=== PATIENT | male | born 2000 ===

== ENCOUNTER 2024-04-03 22:13 | Emergency (ER) | payer OTHER ==
[2024-04-03] MEDS ORDERED: NA CHLORIDE 0.9% 1,000 ML ONE (23:00)
[2024-04-03 23:40] LABS: Calcium Oxalate Crystals- Ur Few /HPF (None Seen); Specific Gravity > 1.030 (1.005-1.030); Sqamous Epithelial None Seen /HPF (None Seen); Urine Bacteria None Seen /HPF (<20); Urine Bilirubin NEGATIVE (Negative); Urine Blood Negative (Negative); Urine Clarity Clear (Clear); Urine Color Light-Yellow (Yellow); Urine Culture Reflex Order NOT NEEDED; Urine Glucose NEGATIVE (Negative); Urine Ketones NEGATIVE (Negative); Urine Microscopic Reflex YN ORDER UMIC; Urine Mucus Slight /HPF (None Seen); Urine Nitrite NEGATIVE (Negative); Urine Protein TRACE (Negative); Urine RBC <5 /HPF (None Seen); Urine Urobilinogen Normal (Normal); Urine WBC <5 /HPF (<5); Urine pH 5.5 (5.0-7.0)
[2024-04-03 23:44] LABS: Absolute Eosinophils 0.1 K/uL (0-0.5); Absolute Lymphocytes (CBC) 3.6 K/uL (0.7-4.9); Absolute Monocytes 0.7 K/uL (0.1-1.3); Absolute Neutrophil 5.9 K/uL (1.8-8.0); Basophils % 0.5 % (0-1.3); Eosinophils % 0.9 % (0-4.4); Hematocrit 40.3 % (39.6-49.0); Hemoglobin 13.8 g/dL (13.6-17.9); Lymphocytes % 35.1 % (15.3-44.8); MCH 28.7 pg (27.0-35.0); MCHC 34.4 g/dL (32.0-36.0); MCV 83.6 fL (80-100); MPV 9.2 fL (7.6-11.3); Monocytes % 6.5 % (3.3-12.3); Nucleated Red Blood Cells % 0.2 % (0-0); Platelets 286 thou/uL (152-406); RBC Red Blood Cell Count 4.82 M/uL (4.33-5.43); Red Cell Distribution Width 12.9 % (12.1-15.2)
[2024-04-03 23:57] LABS: Albumin 3.9 g/dL (3.4-5.0); Anion Gap 8.7 mEq/L (5.0-15.0); Bilirubin Total 0.3 mg/dL (0.2-1.0); Potassium 3.7 mEq/L (3.5-5.1); Protein, Total 7.9 g/dL (6.4-8.2); Troponin High Sensitivity 5.3 pg/mL (<58.9)
--- NOTE | 2024-04-04 00:05 | EDPHYS ---
Physician Documentation [facility] Name: Kp Silverman Age: 23 yrs Sex: Male : 2000 Arrival Date: 04/03/2024 Time: 22:13 Bed 6 Private MD: ED Physician Mario López HPI: 04/04 00:47 This 23 yrs old Male presents to ER via Ambulatory with complaints of Dizziness, kb Headache. 00:47 Patient is a 23-year-old male who presents for dizziness and headache that started at 8 kb PM while in class. States he worked all day, had an interview and an exam at school this evening so it is been a overly stressful day. States he also worked outside all day which is abnormal. Denies chest pain, shortness of breath, fever, cough, congestion. States symptoms have improved but not resolved. Historical: - Allergies: 04/03 22:26 No Known Allergies; kl - Home Meds: 22:26 None [Active]; kl - PMHx: 22:26 Headache; kl - PSHx: 22:26 None; kl - Immunization history:: Adult Immunizations not immunized. - Infectious Disease History:: Denies. - Social history:: Smoking status: Reported history of juuling and/or vaping. ROS: 04/04 00:29 Constitutional: As per HPI kb Exam: 04/03 23:46 Constitutional: This is a well developed, well nourished patient who is awake, alert, kb and in no acute distress. Head/Face: Normocephalic, atraumatic. Eyes: Pupils equal round and reactive to light, extra-ocular motions intact. Lids and lashes normal. Conjunctiva and sclera are non-icteric and not injected. Cornea within normal limits. Periorbital areas with no swelling, redness, or edema. ENT: Moist Mucous membranes Cardiovascular: Regular rate Respiratory: Respirations even and unlabored. No increased work of breathing. Talking in full sentences Abdomen/GI: Soft, non-tender. No distention Skin: Warm, dry with normal turgor. Normal color. MS/ Extremity: Pulses equal, no cyanosis. Neurovascular intact. Full, normal range of motion. Neuro: Awake and alert, GCS 15, oriented to person, place, time, and situation. ECG was reviewed by the Attending Physician. Vital Signs: 22:23 BP 146 / 86; Pulse 81; Resp 20; Temp 96.9(T); Pulse Ox 98% on R/A; Weight 136.08 kg kl (R); Height 5 ft. 11 in. ; Pain 6/10; 23:26 BP 130 / 76; Pulse 72; Resp 16; Temp 98.2(O); Pulse Ox 97% on R/A; Pain 0/10; mt4 04/04 00:45 BP 134 / 81; Pulse 66; Resp 17; Temp 98.2; Pulse Ox 97% ; Pain 0/10; bm8 04/03 22:23 Body Mass Index 41.84 (136.08 kg, 180.34 cm) kl 04/03 22:23 Pain Scale: Adult kl 23:26 Pain Scale: Adult mt4 04/04 00:45 Pain Scale: Adult bm8 [place] Coma Score: 04/03 23:26 Eye Response: spontaneous(4). Motor Response: obeys commands(6). Verbal Response: mt4 oriented(5). Total: 15. 04/04 00:45 Eye Response: spontaneous(4). Motor Response: obeys commands(6). Verbal Response: bm8 oriented(5). Total: 15. MDM: 04/03 22:21 Medical Screening Exam initiated kb 04/04 00:29 Differential diagnosis: cardiac arrhythmia, generalized weakness, idiopathic dizziness, kb near-syncope. Data reviewed: vital signs, nurses notes. Historians other than the Patient: Spouse/Significant Other: significant other. Counseling: I had a detailed discussion with the patient and/or guardian regarding the historical points, exam findings, and any diagnostic results supporting the discharge/admit diagnosis, lab results, the need for outpatient follow up, a family practitioner, to return to the emergency department if symptoms worsen or persist or if there are any questions or concerns that arise at home. 00:48 ED course: Patient feeling better after treatment, ambulatory with steady gait.. kb 04/03 22:25 Order name: CBC with Diff; Complete Time: 23:48 kb 04/03 22:25 Order name: CMP; Complete Time: 23:57 kb 04/03 22:25 Order name: Troponin High Sensitivity; Complete Time: 23:57 kb 04/03 22:25 Order name: CPK; Complete Time: 23:57 kb 04/03 22:25 Order name: Urinalysis w/ reflexes; Complete Time: 23:42 kb 04/03 22:25 Order name: EKG; Complete Time: 22:26 kb 04/03 22:25 Order name: IV Start; Complete Time: 23:26 kb 04/03 22:25 Order name: EKG - Nurse/Tech; Complete Time: 23:58 kb EC/30 23:46 Rate is 76 beats/min. Rhythm is regular. QRS [place] is Normal. NM interval is normal at kb 76 msec. QRS interval is normal at 162 msec. QT interval is normal at 110 msec. Administered Medications: : Drug: NS 0.9% IV 1000 ml IV at 1000 ml once; to be given as a bolus over 60 minutes mt4 Route: IV; Rate: 1000 ml; Site: left antecubital; 04/04 00:46 Follow up: Response: No adverse reaction; IV Status: Completed infusion; IV Intake: bm8 1000ml Disposition Summary: 04/04/24 00:05 Discharge Ordered Notes: Location: Home kb Condition: Stable kb Diagnosis - Dizziness and giddiness kb Followup: kb - With: Emergency Department - When: As needed - Reason: Worsening of condition Followup: kb - With: Private Physician - When: 2 - 3 days - Reason: Recheck today's complaints, Continuance of care, Re-evaluation by your physician Discharge Instructions: - Discharge Summary Sheet kb - Dizziness, [id number] kb Forms: - Medication Reconciliation Form kb - Antibiotic Education kb - Prescription Opioid Use kb - Patient Portal Instructions kb - Leadership Thank You Letter kb Signatures: Dispatcher [employer] Alyssa Stewart FNP-C FNP-Ellie Nina, RN RN Herlinda Miller, RN RN mt4 Lit Russ RN bm8
--- NOTE | 2024-04-04 00:05 | ER ---
Nurse's Notes [facility] Name: Kp Silverman Age: 23 yrs Sex: Male : 2000 Arrival Date: 04/03/2024 Time: 22:13 Bed 6 Private MD: Diagnosis: Dizziness and giddiness Presentation: 04/03 22:23 Chief complaint: Patient states: dizziness and headache since 8 pm reports long kl stressful day was sitting in class when symptoms began. Coronavirus screen: Vaccine status: Patient reports being unvaccinated. Ebola Screen: Patient negative for fever greater than or equal to 101.5 degrees Fahrenheit, and additional compatible Ebola Virus Disease symptoms. Initial Sepsis Screen: Does the patient meet any 2 criteria? No. Patient's initial sepsis screen is negative. Does the patient have a suspected source of infection? No. Patient's initial sepsis screen is negative. Risk Assessment: Do you want to hurt yourself or someone else? Patient reports no desire to harm self or others. Onset of symptoms was April 03, 2024 at 20:00. 22:23 Method Of Arrival: Ambulatory 22:23 Acuity: ANG 4 kl 22:28 Acuity: ANG 3 kl Triage Assessment: 22:26 Headache History: The patient has had previous headaches and this one is more severe kl than previous episodes. General: Appears in no apparent distress. comfortable, Behavior is calm, cooperative, appropriate for age. Pain: Pain currently is 6 out of 10 on a pain scale. Pain began 3 hours ago. Also complains of dizziness. Neuro: No deficits noted. Level of Consciousness is awake, alert, obeys commands, Oriented to person, place, time, situation, Gait is steady, Speech is normal, Facial symmetry appears normal, Pupils are PERRLA. Historical: - Allergies: 22:26 No Known Allergies; kl - Home Meds: 22:26 None [Active]; kl - PMHx: 22:26 Headache; kl - PSHx: 22:26 None; kl - Immunization history:: Adult Immunizations not immunized. - Infectious Disease History:: Denies. - Social history:: Smoking status: Reported history of juuling and/or vaping. Screenin:26 [facility] ED Fall Risk Assessment (Adult) History of falling in the last 3 months, mt4 including since admission Confusion or Disorientation No (0 pts) Intoxicated or Sedated No (0 pts) Impaired Gait No (0 pts) Mobility Assist Device Used No (0 pt) Altered Elimination No (0 pt) Score/Fall Risk Level 0 - 2 = Low Risk. Abuse screen: Denies injuries from another. Nutritional screening: No deficits noted. Tuberculosis screening: No symptoms or risk factors identified. Exposure risk/Travel Screening: None identified. Assessment: 23:26 General: Appears in no apparent distress. comfortable, Behavior is calm, cooperative, mt4 appropriate for age. General: Reports fatigue for. Pain: Denies pain. Neuro: Level of Consciousness is awake, alert, obeys commands, Oriented to person, place, time, situation, Appropriate for age Unemployment Insurance Hearing Officer are equal bilaterally Moves all extremities. Gait is steady, Speech is normal, Facial symmetry appears normal. Cardiovascular: Capillary refill < 3 seconds. Respiratory: Airway is patent Respiratory effort is even, unlabored, Respiratory pattern is regular, symmetrical. GI: No signs and/or symptoms were reported involving the gastrointestinal system. : No signs and/or symptoms were reported regarding the genitourinary system. Derm: No signs and/or symptoms reported regarding the dermatologic system. Musculoskeletal: Capillary refill < 3 seconds, Range of motion: intact in all extremities. 04/04 00:45 Reassessment: Patient appears in no apparent distress at this time. Patient and/or bm8 family updated on plan of care and expected duration. Pain level reassessed. Patient is alert, oriented x 3, equal unlabored respirations, skin warm/dry/pink. Patient denies pain at this time. Patient states feeling better. Patient states symptoms have improved. Vital Signs: 04/03 22:23 BP 146 / 86; Pulse 81; Resp 20; Temp 96.9(T); Pulse Ox 98% on R/A; Weight 136.08 kg kl (R); Height 5 ft. 11 in. ; Pain 6/10; 23:26 BP 130 / 76; Pulse 72; Resp 16; Temp 98.2(O); Pulse Ox 97% on R/A; Pain 0/10; mt4 04/04 00:45 BP 134 / 81; Pulse 66; Resp 17; Temp 98.2; Pulse Ox 97% ; Pain 0/10; bm8 04/03 22:23 Body Mass Index 41.84 (136.08 kg, 180.34 cm) 04/03 22:23 Pain Scale: Adult kl 23:26 Pain Scale: Adult mt4 04/04 00:45 Pain Scale: Adult bm8 [place] Coma Score: 04/03 23:26 Eye Response: spontaneous(4). Motor Response: obeys commands(6). Verbal Response: mt4 oriented(5). Total: 15. 04/04 00:45 Eye Response: spontaneous(4). Motor Response: obeys commands(6). Verbal Response: bm8 oriented(5). Total: 15. ED Course: 04/03 22:18 Patient arrived in ED. gm2 22:21 Alyssa Weldon [facility]-C [facility]. kb 22:21 Mario López MD is Attending Physician. kb 22:26 Triage completed. kl 22:57 Herlinda Miller, RN is Primary Nurse. mt4 23:26 No apparent distress. Resting quietly. Awaiting lab results. mt4 23:26 Patient has correct armband on for positive identification. Bed in low position. Call mt4 light in reach. Side rails up X 1. Provided Education on: safety education, labs, meds . Client placed on continuous cardiac and pulse oximetry monitoring. NIBP monitoring applied. Pulse ox on. Door closed. Lights dimmed. Assisted to bathroom. 23:26 No provider procedures requiring assistance completed. Inserted saline lock: 20 gauge mt4 in left antecubital area, using aseptic technique. Blood collected. Flushed with 10 mL NS. Patient maintains SpO2 saturation greater than 95% on room air. 04/04 00:45 IV discontinued, intact, bleeding controlled, No redness/swelling at site. Pressure bm8 dressing applied. 00:47 Arm band placed on right wrist. bm8 Administered Medications: 04/03 23:26 Drug: NS 0.9% IV 1000 ml IV at 1000 ml once; to be given as a bolus over 60 minutes mt4 Route: IV; Rate: 1000 ml; Site: left antecubital; 04/04 00:46 Follow up: Response: No adverse reaction; IV Status: Completed infusion; IV Intake: bm8 1000ml Medication: 04/03 23:26 VIS not applicable for this client. mt4 Intake: 04/04 00:46 IV: 1000ml; Total: 1000ml. bm8 Outcome: 00:05 Discharge ordered by . ambika 00:45 Discharged to home ambulatory, bm8 00:45 Condition: stable 00:45 Discharge instructions given to patient, family, Instructed on discharge instructions, follow up and referral plans. Demonstrated understanding of instructions, follow-up care, Prescriptions given X 00:47 Patient left the ED. bm8 Signatures: Alyssa Weldon, ELECTRONIC INTELLIGENCE OFFICER-C PRISCILLA-Ellie Nina, RN RN Essie Jaffe 2 Lit Russ RN RN bm8 Herlinda Miller RN RN mt4
[2024-04-04 01:01] VITALS: TEMP 98.2; O2SAT 97
[2024-04-04 01:02] VITALS: BP 134/81
--- NOTE | 2024-04-04 11:06 | EKG ---
Test Date: 2024-04-03 Test Time: 23:36:47 Adobe Maker: BRIAN MEASUREMENT RESULTS: Intervals: Rate: 76 [place]: 162 QRSD: 110 QT: 390 QTc: 438 [place]: P: 33 [place]: 162 QRS: 8 T: 16 INTERPRETIVE STATEMENTS: Normal sinus rhythm with sinus arrhythmia Incomplete right bundle branch block Borderline ECG No previous ECG available for comparison Electronically Signed On 04-04-24 11:05:30 CDT by Johnnie Stern
== END 2024-04-04 00:47 | disposition home or self-care (01) ==
LOC: ER 22:13
DX: R42 Dizziness and giddiness (principal); R51.9 Headache, unspecified
CPT/HCPCS: 93005; 85025; 81001; 36415; 82550; 84484; 80053; 96360; 99284; J7030